=== PATIENT | female | born 1935 | race African-American/Black ===

== ENCOUNTER 2019-11-22 16:15 | Inpatient (IN) | payer MEDICARE, MEDICAID ==
[~2019-11-22] VITALS: Ht 167.6 cm; Wt 65.4 kg
[~2019-11-22 16:15] MED LIST: HYDROCHLOROTHIAZIDE PO; LEVOTHYROXINE PO; POTASSIUM PO
[2019-11-22 18:02] VITALS: BP 169/83
[2019-11-22] MEDS ORDERED: ZOLPIDEM TARTRATE 5MG TABLET PO PRN (18:30)
[2019-11-22] MEDS ORDERED: AMLODIPINE 5MG TABLET PO SCH (18:30)
[2019-11-22] MEDS ORDERED: ACETAMINOPHEN 325MG TABLET PO PRN (18:30)
[2019-11-22 20:00] VITALS: BP 130/59
[2019-11-22 21:33] LABS: BASOPHILS % 0.6 % (0.0-2.0); EOSINOPHILS % 3.6 % (0.0-5.0); HEMATOCRIT. 39.8 % (36.0-48.0); HEMOGLOBIN. 13.6 g/dL (12.0-16.0); MEAN CORPUSCULAR HEMOGLOBIN 35.2 pg (28.0-32.0); MEAN CORPUSCULAR VOLUME 102.7 fL (81.0-99.0); MEAN PLATELET VOLUME 8.8 fl (7.4-10.4); MONOCYTES % 10.5 % (2.0-8.0); NEUTROPHILS % 31.3 % (40.0-76.0); PLATELET 164 x1000/uL (130-400); RED BLOOD CELL COUNT 3.87 mill/uL (4.2-5.4); RED CELL DISTRIBUTION WIDTH 14.5 % (11.6-14.6)
[2019-11-22 21:39] LABS: PARTIAL THROMBOPLASTIN TIME 23.4 sec (23.4-31.0); PROTHROMBIN TIME 10.6 sec (9.6-11.0)
[2019-11-22 21:41] LABS: CHLORIDE 106 mEq/L (98-107)
[2019-11-22 22:33] LABS: CLARITY URINE CLEAR (CLEAR); COLOR URINE YELLOW (YELLOW); KETONES URINE NEGATIVE (NEGATIVE); LEUKOCYTE ESTERASE URINE NEGATIVE (NEGATIVE); NITRITE URINE NEGATIVE (NEGATIVE); OCCULT BLOOD URINE NEGATIVE (NEGATIVE); PROTEIN URINE TRACE (NEGATIVE); UROBILINOGEN URINE 0.2 E.U./dL (0.2-1.0)
[2019-11-23] VITALS (9 sets, daily range): BP systolic 122–177; BP diastolic 56–105
[2019-11-23 07:03] LABS: HEMATOCRIT. 36.7 % (36.0-48.0); HEMOGLOBIN. 12.8 g/dL (12.0-16.0); MEAN CORPUSCULAR HEMOGLOBIN 35.3 pg (28.0-32.0); MEAN CORPUSCULAR VOLUME 101.5 fL (81.0-99.0); MEAN PLATELET VOLUME 8.7 fl (7.4-10.4); PLATELET 144 x1000/uL (130-400); RED BLOOD CELL COUNT 3.62 mill/uL (4.2-5.4)
[2019-11-23] MEDS ORDERED: GENTAMICIN SULF 40MG/ML 2ML VIAL ONE (08:06)
[2019-11-23] MEDS ORDERED: LIDOCAINE HCL 1% 20ML VIAL (Pyxis) INJ ONE (08:07)
[2019-11-23] MEDS ORDERED: GENTAMICIN/NS IRRIGATION 500 ML IR ONE (08:07)
[2019-11-23] MEDS ORDERED: MIDAZOLAM HCL 5 MG/5 ML VIAL ONE (08:35)
[2019-11-23] MEDS ORDERED: PROPOFOL 200MG/20ML VIAL IV ONE (08:36)
[2019-11-23] MEDS ORDERED: ASPIRIN 81MG EC TABLET PO SCH (09:00)
[2019-11-23] MEDS ORDERED: KCL 20MEQ/100ML PREMIX 100 ML IV ONE (09:15)
[2019-11-23] MEDS ORDERED: HYDROCODONE/ACETAMINOPHEN 5/325MG TABLET PO PRN (10:00)
[2019-11-23] MEDS ORDERED: SODIUM CHLORIDE 0.9% 1,000 ML IV ONE (10:10)
[2019-11-23] MEDS ORDERED: ONDANSETRON HCL 4MG/2ML INJ IV PRN (10:15)
[2019-11-23] MEDS ORDERED: MORPHINE SULFATE 2 MG/ML CPJ (NOT FOR IM USE) IV PRN (10:15)
[2019-11-23] MEDS ORDERED: HYDROMORPHONE HCL/PF 2MG/ML CPJ IV PRN (10:15)
[2019-11-23 19:21] LABS: PLATELET ESTIMATE NORMAL
[2019-11-23] MEDS: AMLODIPINE 5MG TABLET PO SCH (21:41)
[2019-11-24] VITALS (9 sets, daily range): BP systolic 142–172; BP diastolic 70–94
[2019-11-24 07:14] LABS: HEMOGLOBIN. 14.4 g/dL (12.0-16.0); MEAN CORPUSCULAR HEMOGLOBIN 35.5 pg (28.0-32.0); MEAN CORPUSCULAR VOLUME 101.5 fL (81.0-99.0); MEAN PLATELET VOLUME 8.6 fl (7.4-10.4); PLATELET 144 x1000/uL (130-400); RED BLOOD CELL COUNT 4.04 mill/uL (4.2-5.4); RED CELL DISTRIBUTION WIDTH 14.6 % (11.6-14.6)
[2019-11-24] MEDS: AMLODIPINE 5MG TABLET PO SCH (08:27)
[2019-11-24] MEDS ORDERED: POTASSIUM CHLORIDE 20MEQ TABLET SR PO NR (10:00)
[2019-11-25 13:41] LABS: PLATELET ESTIMATE NORMAL
== END 2019-11-24 15:50 | disposition home or self-care (01) | DRG 242 ==
LOC: 6WST 16:15 → 3WST 11-23 11:47
PROVIDERS: ADMIT Specialist; ATTEND Internal Medicine Clinical Cardiac Electrophysiology
PROC: 0JH606Z Insertion of Pacemaker, Dual Chamber into Chest Subcutaneous Tissue and Fascia, Open Approach (ICD-10-PCS; principal; 2019-11-23)
PROC: 02HK3JZ Insertion of Pacemaker Lead into Right Ventricle, Percutaneous Approach (ICD-10-PCS; 2019-11-23)
PROC: 02H63JZ Insertion of Pacemaker Lead into Right Atrium, Percutaneous Approach (ICD-10-PCS; 2019-11-23)
PROC: B517YZZ Fluoroscopy of Left Subclavian Vein using Other Contrast (ICD-10-PCS; 2019-11-23)
DX: I49.5 Sick sinus syndrome (principal); N17.0 Acute kidney failure with tubular necrosis; E03.9 Hypothyroidism, unspecified; E78.5 Hyperlipidemia, unspecified; I12.9 Hypertensive chronic kidney disease with stage 1 through stage 4 chronic kidney disease, or unspecified chronic kidney disease; I25.10 Atherosclerotic heart disease of native coronary artery without angina pectoris; I48.91 Unspecified atrial fibrillation; I71.2 Thoracic aortic aneurysm, without rupture; F10.20 Alcohol dependence, uncomplicated; K21.9 Gastro-esophageal reflux disease without esophagitis; N18.9 Chronic kidney disease, unspecified; I25.2 Old myocardial infarction; Z80.0 Family history of malignant neoplasm of digestive organs; Z79.82 Long term (current) use of aspirin; Z79.899 Other long term (current) drug therapy
CPT/HCPCS: 33208; 36415; 71045; 75820; 80048; 80053; 81003; 83735; 84443; 85025; 93005; A4565; C1785; C1893; C1898; J1580; J2250; J2704; J3480; J3490

== ENCOUNTER 2022-08-26 22:17 | Inpatient (IN) | payer MEDICARE, MEDICAID ==
[~2022-08-26] VITALS: Ht 157.5 cm; Wt 48.5 kg
[2022-08-26 22:05] VITALS: BP 134/80
[2022-08-26] MEDS ORDERED: ACETAMINOPHEN 650MG SUPP PR PRN (23:15)
[2022-08-26] MEDS ORDERED: IPRATROPIUM/ALBUTEROL 0.5-3(2.5)MG/3ML NEB HHN PRN (23:15)
[2022-08-26] MEDS ORDERED: DIPHENHYDRAMINE 50MG/ML VIAL IV PRN (23:15)
[2022-08-26] MEDS ORDERED: ONDANSETRON HCL 4MG/2ML INJ IV PRN (23:15)
[2022-08-26] MEDS ORDERED: CLONIDINE 0.1MG TABLET PO PRN (23:15)
[2022-08-27] MEDS: LEVOTHYROXINE SODIUM 25MCG TABLET PO SCH (06:52)
[2022-08-27 06:53] LABS: HEMATOCRIT. 30.3 % (36.0-48.0); HEMOGLOBIN. 10.7 g/dL (12.0-16.0); MEAN CORPUSCULAR HEMOGLOBIN 35.6 pg (28.0-32.0); MEAN CORPUSCULAR VOLUME 100.7 fL (81.0-99.0); MEAN PLATELET VOLUME 8.7 fl (7.4-10.4); PLATELET 182 x1000/uL (130-400); RED BLOOD CELL COUNT 3.01 mill/uL (4.2-5.4); RED CELL DISTRIBUTION WIDTH 13.6 % (11.6-14.6)
[2022-08-27 07:00] LABS: CHLORIDE 107 mEq/L (98-107)
[2022-08-27 08:00] VITALS: BP 141/79
[2022-08-27] MEDS: METOPROLOL TARTRATE 25MG TABLET PO SCH ×2 (09:27→21:41)
[2022-08-27] MEDS: ASPIRIN 81MG EC TABLET PO SCH (09:28)
[2022-08-27] MEDS: AMLODIPINE 10MG TABLET PO SCH (09:28)
[2022-08-27 12:09] LABS: PLATELET ESTIMATE NORMAL
[2022-08-27 20:00] VITALS: BP 151/74
[2022-08-28] MEDS: LEVOTHYROXINE SODIUM 25MCG TABLET PO SCH (06:46)
[2022-08-28 08:03] LABS: BASOPHILS % 0.6 % (0.0-2.0); EOSINOPHILS % 3.4 % (0.0-5.0); HEMATOCRIT. 33.9 % (36.0-48.0); HEMOGLOBIN. 11.9 g/dL (12.0-16.0); LYMPHOCYTES % 34.5 % (20.0-50.0); MEAN CORPUSCULAR HEMOGLOBIN 35.3 pg (28.0-32.0); MEAN PLATELET VOLUME 8.5 fl (7.4-10.4); MONOCYTES % 14.4 % (2.0-8.0); NEUTROPHILS % 47.1 % (40.0-76.0); PLATELET 199 x1000/uL (130-400); RED BLOOD CELL COUNT 3.36 mill/uL (4.2-5.4); RED CELL DISTRIBUTION WIDTH 13.6 % (11.6-14.6)
[2022-08-28] MEDS: AMLODIPINE 10MG TABLET PO SCH (10:02)
[2022-08-28] MEDS: METOPROLOL TARTRATE 25MG TABLET PO SCH ×2 (10:02→21:21)
[2022-08-28] MEDS: ASPIRIN 81MG EC TABLET PO SCH (10:02)
[2022-08-28 20:00] VITALS: BP 125/69
[2022-08-29] MEDS ORDERED: NA PHOS,M-B/NA PHOS,DI-BA ENEMA 118ML PR PRN (04:15)
[2022-08-29] MEDS: LEVOTHYROXINE SODIUM 25MCG TABLET PO SCH (06:07)
[2022-08-29] MEDS: LACTULOSE 20G/30ML UDC PO SCH ×3 (06:07→13:15)
[2022-08-29] MEDS ORDERED: BISACODYL 10MG SUPP PR NR (10:00)
[2022-08-29] MEDS: METOPROLOL TARTRATE 25MG TABLET PO SCH ×2 (11:55→21:16)
[2022-08-29] MEDS: ASPIRIN 81MG EC TABLET PO SCH (11:55)
[2022-08-29] MEDS: AMLODIPINE 10MG TABLET PO SCH (11:55)
[2022-08-29 16:27] LABS: BASOPHILS % 0.3 % (0.0-2.0); EOSINOPHILS % 1.9 % (0.0-5.0); HEMATOCRIT. 34.1 % (36.0-48.0); HEMOGLOBIN. 11.9 g/dL (12.0-16.0); LYMPHOCYTES % 26.9 % (20.0-50.0); MEAN CORPUSCULAR HEMOGLOBIN 35.6 pg (28.0-32.0); MEAN CORPUSCULAR VOLUME 102.1 fL (81.0-99.0); MEAN PLATELET VOLUME 8.5 fl (7.4-10.4); MONOCYTES % 9.5 % (2.0-8.0); NEUTROPHILS % 61.4 % (40.0-76.0); PLATELET 203 x1000/uL (130-400); RED BLOOD CELL COUNT 3.34 mill/uL (4.2-5.4); RED CELL DISTRIBUTION WIDTH 13.6 % (11.6-14.6)
[2022-08-29 16:53] LABS: PHOSPHORUS 2.3 mg/dL (2.5-4.9)
[2022-08-30] MEDS: LEVOTHYROXINE SODIUM 25MCG TABLET PO SCH (06:43)
[2022-08-30 07:01] LABS: BASOPHILS % 0.7 % (0.0-2.0); HEMATOCRIT. 33.6 % (36.0-48.0); HEMOGLOBIN. 11.8 g/dL (12.0-16.0); LYMPHOCYTES % 37.1 % (20.0-50.0); MEAN CORPUSCULAR HEMOGLOBIN 35.3 pg (28.0-32.0); MEAN CORPUSCULAR VOLUME 100.9 fL (81.0-99.0); MEAN PLATELET VOLUME 8.5 fl (7.4-10.4); MONOCYTES % 10.2 % (2.0-8.0); PLATELET 203 x1000/uL (130-400); RED BLOOD CELL COUNT 3.33 mill/uL (4.2-5.4); RED CELL DISTRIBUTION WIDTH 13.7 % (11.6-14.6)
[2022-08-30] MEDS ORDERED: BISACODYL 10MG SUPP PR PRN (09:00)
[2022-08-30] MEDS: ASPIRIN 81MG EC TABLET PO SCH (10:46)
[2022-08-30] MEDS: METOPROLOL TARTRATE 25MG TABLET PO SCH ×2 (10:46→20:40)
[2022-08-30] MEDS: AMLODIPINE 10MG TABLET PO SCH (10:46)
[2022-08-30 19:51] VITALS: BP 126/88
[2022-08-31] MEDS: LEVOTHYROXINE SODIUM 25MCG TABLET PO SCH (06:15)
[2022-08-31 08:00] VITALS: BP 121/72
[2022-08-31] MEDS: ASPIRIN 81MG EC TABLET PO SCH (09:19)
[2022-08-31] MEDS: METOPROLOL TARTRATE 25MG TABLET PO SCH ×2 (09:22→23:27)
[2022-08-31] MEDS: AMLODIPINE 10MG TABLET PO SCH (09:23)
[2022-08-31 20:00] VITALS: BP 140/69
[2022-09-01] MEDS: LEVOTHYROXINE SODIUM 25MCG TABLET PO SCH (06:23)
[2022-09-01 08:00] VITALS: BP 145/65
[2022-09-01] MEDS: ASPIRIN 81MG EC TABLET PO SCH (08:24)
[2022-09-01] MEDS: METOPROLOL TARTRATE 25MG TABLET PO SCH ×2 (08:24→20:43)
[2022-09-01] MEDS: AMLODIPINE 10MG TABLET PO SCH (08:25)
[2022-09-01 20:00] VITALS: BP 133/65
[2022-09-01] MEDS: ATORVASTATIN CALCIUM 40MG TABLET PO SCH (20:43)
[2022-09-02] MEDS: LEVOTHYROXINE SODIUM 25MCG TABLET PO SCH (06:01)
[2022-09-02 06:03] LABS: BASOPHILS % 0.7 % (0.0-2.0); EOSINOPHILS % 3.1 % (0.0-5.0); HEMATOCRIT. 30.7 % (36.0-48.0); LYMPHOCYTES % 38.2 % (20.0-50.0); MEAN CORPUSCULAR VOLUME 100.7 fL (81.0-99.0); MEAN PLATELET VOLUME 8.6 fl (7.4-10.4); MONOCYTES % 12.2 % (2.0-8.0); NEUTROPHILS % 45.8 % (40.0-76.0); PLATELET 211 x1000/uL (130-400); RED BLOOD CELL COUNT 3.05 mill/uL (4.2-5.4); RED CELL DISTRIBUTION WIDTH 13.7 % (11.6-14.6)
[2022-09-02 08:00] VITALS: BP 133/75
[2022-09-02] MEDS: AMLODIPINE 10MG TABLET PO SCH (08:59)
[2022-09-02] MEDS: METOPROLOL TARTRATE 25MG TABLET PO SCH ×2 (08:59→20:37)
[2022-09-02] MEDS: ASPIRIN 81MG EC TABLET PO SCH (08:59)
[2022-09-02] MEDS: ATORVASTATIN CALCIUM 40MG TABLET PO SCH (20:37)
[2022-09-03] MEDS: LEVOTHYROXINE SODIUM 25MCG TABLET PO SCH (07:12)
[2022-09-03 08:00] VITALS: BP 117/58
[2022-09-03] MEDS: ASPIRIN 81MG EC TABLET PO SCH (09:10)
[2022-09-03] MEDS: AMLODIPINE 10MG TABLET PO SCH (09:14)
[2022-09-03] MEDS: METOPROLOL TARTRATE 25MG TABLET PO SCH ×2 (09:14→21:13)
[2022-09-03] MEDS ORDERED: NALOXONE HCL 0.4MG/ML VIAL IV PRN (16:00)
[2022-09-03] MEDS: HYDROCODONE/ACETAMINOPHEN 5/325MG TABLET PO PRN (16:10)
[2022-09-03 20:00] VITALS: BP 133/73
[2022-09-03] MEDS: ATORVASTATIN CALCIUM 40MG TABLET PO SCH (21:14)
[2022-09-04] MEDS: LEVOTHYROXINE SODIUM 25MCG TABLET PO SCH (06:23)
[2022-09-04 06:51] LABS: HEMATOCRIT. 33.6 % (36.0-48.0); HEMOGLOBIN. 11.4 g/dL (12.0-16.0); MEAN CORPUSCULAR HEMOGLOBIN 35.2 pg (28.0-32.0); MEAN CORPUSCULAR VOLUME 103.4 fL (81.0-99.0); MEAN PLATELET VOLUME 8.8 fl (7.4-10.4); PLATELET 182 x1000/uL (130-400); RED BLOOD CELL COUNT 3.25 mill/uL (4.2-5.4); RED CELL DISTRIBUTION WIDTH 14.1 % (11.6-14.6)
[2022-09-04 08:00] VITALS: BP 142/66
[2022-09-04 08:43] LABS: PLATELET ESTIMATE NORMAL
[2022-09-04] MEDS: METOPROLOL TARTRATE 25MG TABLET PO SCH ×2 (09:10→20:17)
[2022-09-04] MEDS: ASPIRIN 81MG EC TABLET PO SCH (09:10)
[2022-09-04] MEDS: AMLODIPINE 10MG TABLET PO SCH (09:10)
[2022-09-04 13:11] LABS: 25-HYDROXY VITAMIN D3 30 ng/mL (.)
[2022-09-04] MEDS: HYDROCODONE/ACETAMINOPHEN 5/325MG TABLET PO PRN (17:54)
[2022-09-04 20:00] VITALS: BP 123/64
[2022-09-04] MEDS: ATORVASTATIN CALCIUM 40MG TABLET PO SCH (20:17)
[2022-09-05] MEDS: LEVOTHYROXINE SODIUM 25MCG TABLET PO SCH (06:04)
[2022-09-05 08:00] VITALS: BP 140/70
[2022-09-05] MEDS: ASPIRIN 81MG EC TABLET PO SCH (09:12)
[2022-09-05] MEDS: METOPROLOL TARTRATE 25MG TABLET PO SCH ×2 (09:12→20:37)
[2022-09-05] MEDS: AMLODIPINE 10MG TABLET PO SCH (09:12)
[2022-09-05 20:00] VITALS: BP 118/67
[2022-09-05] MEDS: ATORVASTATIN CALCIUM 40MG TABLET PO SCH (20:37)
[2022-09-06] MEDS: LEVOTHYROXINE SODIUM 25MCG TABLET PO SCH (06:05)
[2022-09-06 08:00] VITALS: BP 134/69
[2022-09-06] MEDS: ASPIRIN 81MG EC TABLET PO SCH (08:13)
[2022-09-06] MEDS: METOPROLOL TARTRATE 25MG TABLET PO SCH ×2 (08:13→21:30)
[2022-09-06] MEDS: AMLODIPINE 10MG TABLET PO SCH (08:14)
[2022-09-06] MEDS: HYDROCODONE/ACETAMINOPHEN 5/325MG TABLET PO PRN ×2 (17:30→21:30)
[2022-09-06 20:11] VITALS: BP 121/74
[2022-09-06] MEDS: ATORVASTATIN CALCIUM 40MG TABLET PO SCH (21:29)
[2022-09-07] MEDS: LEVOTHYROXINE SODIUM 25MCG TABLET PO SCH (06:31)
[2022-09-07 08:00] VITALS: BP 106/35
[2022-09-07] MEDS: ASPIRIN 81MG EC TABLET PO SCH (08:47)
[2022-09-07] MEDS: METOPROLOL TARTRATE 25MG TABLET PO SCH (08:50)
[2022-09-07] MEDS: AMLODIPINE 10MG TABLET PO SCH (08:51)
[2022-09-07] MEDS ORDERED: AMLO10TA80 PO ×2 (09:57)
[2022-09-07] MEDS ORDERED: ASPI-1406 PO (09:57)
[2022-09-07] MEDS ORDERED: METO25TA6 PO ×2 (09:57)
[2022-09-07] MEDS ORDERED: LEVO25TA7 PO (09:57)
[2022-09-07] MEDS ORDERED: LIP40 PO (09:57)
[2022-09-07 10:14] VITALS: BP 106/35
[2022-09-07] MEDS ORDERED: METO25TA6 MT (12:02)
[2022-09-07] MEDS ORDERED: AMLO2.5T45 MT (12:02)
[2022-09-07] MEDS ORDERED: METOPROLOL TARTRATE 25MG TABLET PO SCH (21:00)
[2022-09-08] MEDS ORDERED: AMLODIPINE 2.5MG TABLET PO SCH (09:00)
== END 2022-09-07 11:33 | disposition home health service (06) | DRG 65 ==
PROVIDERS: ADMIT Physical Medicine & Rehabilitation Spinal Cord Injury Medicine; ATTEND Internal Medicine
PROC: 4A00X4Z Measurement of Central Nervous Electrical Activity, External Approach (ICD-10-PCS; principal; 2022-09-01)
DX: I63.9 Cerebral infarction, unspecified (principal); F01.53 Vascular dementia, unspecified severity, with mood disturbance; I13.0 Hypertensive heart and chronic kidney disease with heart failure and stage 1 through stage 4 chronic kidney disease, or unspecified chronic kidney disease; N39.0 Urinary tract infection, site not specified; N17.9 Acute kidney failure, unspecified; R13.10 Dysphagia, unspecified; B96.20 Unspecified Escherichia coli [E. coli] as the cause of diseases classified elsewhere; I25.10 Atherosclerotic heart disease of native coronary artery without angina pectoris; N18.2 Chronic kidney disease, stage 2 (mild); I50.9 Heart failure, unspecified; E03.9 Hypothyroidism, unspecified; E78.5 Hyperlipidemia, unspecified; I49.5 Sick sinus syndrome; M47.816 Spondylosis without myelopathy or radiculopathy, lumbar region; M17.12 Unilateral primary osteoarthritis, left knee; R53.81 Other malaise; M48.061 Spinal stenosis, lumbar region without neurogenic claudication; E87.6 Hypokalemia; D53.9 Nutritional anemia, unspecified; N83.8 Other noninflammatory disorders of ovary, fallopian tube and broad ligament; I08.0 Rheumatic disorders of both mitral and aortic valves; E83.52 Hypercalcemia; Z95.0 Presence of cardiac pacemaker; Z86.79 Personal history of other diseases of the circulatory system; Z80.8 Family history of malignant neoplasm of other organs or systems; Z79.82 Long term (current) use of aspirin; Z63.4 Disappearance and death of family member; Z82.49 Family history of ischemic heart disease and other diseases of the circulatory system
CPT/HCPCS: 36415; 80048; 80053; 82306; 82330; 83735; 83970; 84100; 84134; 85025; 92508; 92523; 92610; 93005; 93970; 97110; 97112; 97116; 97150; 97162; 97166; 97530; 97535

== ENCOUNTER 2022-11-18 11:27 | Inpatient (IN) | payer MEDICARE, MEDICAID ==
[~2022-11-18] VITALS: Ht 154.9 cm; Wt 59.4 kg
[~2022-11-18 11:27] MED LIST changes: +AMLO2.5T45 MT; +ASPI-1406 PO; -HYDROCHLOROTHIAZIDE PO; +LEVO25TA7 PO; -LEVOTHYROXINE PO; +LIP40 PO; +METO25TA6 MT; -POTASSIUM PO
[2022-11-18 13:15] LABS: BASOPHILS % 0.3 % (0.0-2.0); EOSINOPHILS % 0.7 % (0.0-5.0); HEMATOCRIT. 30.1 % (36.0-48.0); HEMOGLOBIN. 10.6 g/dL (12.0-16.0); LYMPHOCYTES % 25.3 % (20.0-50.0); MEAN CORPUSCULAR HEMOGLOBIN 35.3 pg (28.0-32.0); MEAN CORPUSCULAR VOLUME 100.1 fL (81.0-99.0); MEAN PLATELET VOLUME 8.3 fl (7.4-10.4); MONOCYTES % 12.9 % (2.0-8.0); NEUTROPHILS % 60.8 % (40.0-76.0); PLATELET 161 x1000/uL (130-400); RED BLOOD CELL COUNT 3.01 mill/uL (4.2-5.4); RED CELL DISTRIBUTION WIDTH 14.6 % (11.6-14.6)
[2022-11-18 13:23] LABS: CHLORIDE 108 mEq/L (98-107)
[2022-11-18] MEDS ORDERED: CEFTRIAXONE 1 G PREMIX 50 ML IV ONE (15:15)
[2022-11-18] MEDS ORDERED: ASPIRIN 81MG TABLET PO ONE (15:15)
[2022-11-18 15:36] LABS: COLOR URINE YELLOW (YELLOW)
[2022-11-18 15:37] LABS: CLARITY URINE CLEAR (CLEAR); KETONES URINE TRACE (NEGATIVE); LEUKOCYTE ESTERASE URINE NEGATIVE (NEGATIVE); NITRITE URINE NEGATIVE (NEGATIVE); OCCULT BLOOD URINE NEGATIVE (NEGATIVE); PH URINE 5.5 (4.5-8.0); PROTEIN URINE NEGATIVE (NEGATIVE); SPECIFIC GRAVITY URINE 1.025 (1.005-1.030); UROBILINOGEN URINE 0.2 E.U./dL (0.2-1.0)
[2022-11-19] VITALS (7 sets, daily range): BP systolic 95–174; BP diastolic 63–79
[2022-11-19] MEDS ORDERED: MAGNESIUM/ALUMINUM HYDROXIDE/SIMETHICONE 30ML UDC PO PRN (01:15)
[2022-11-19] MEDS ORDERED: IPRATROPIUM/ALBUTEROL 0.5-3(2.5)MG/3ML NEB HHN PRN (01:15)
[2022-11-19] MEDS ORDERED: CLONIDINE 0.1MG TABLET PO PRN (01:15)
[2022-11-19] MEDS ORDERED: ONDANSETRON HCL 4MG/2ML INJ IV PRN (01:15)
[2022-11-19] MEDS ORDERED: ACETAMINOPHEN 325MG TABLET PO PRN ×2 (01:15)
[2022-11-19] MEDS: AMLODIPINE 2.5MG TABLET PO SCH ×2 (02:57→09:31)
[2022-11-19 07:44] LABS: FOLIC ACID (FOLATE) SERUM 12.9 ng/mL (>5.38)
[2022-11-19] MEDS ORDERED: IPRATROPIUM BROMIDE (0.02%) 0.5MG/2.5ML NEB HHN PRN (08:00)
[2022-11-19] MEDS ORDERED: ALBUTEROL (0.083%) 2.5MG/3ML NEB HHN PRN (08:00)
[2022-11-19] MEDS: LEVOTHYROXINE SODIUM 25MCG TABLET PO SCH (08:48)
[2022-11-19] MEDS ORDERED: METOPROLOL TARTRATE 25MG TABLET PO SCH (09:00)
[2022-11-19] MEDS ORDERED: POTASSIUM CHLORIDE 20MEQ TABLET SR PO NR (09:00)
[2022-11-19] MEDS ORDERED: FUROSEMIDE 40MG/4ML VIAL IVP SCH (09:00)
[2022-11-19] MEDS: ENOXAPARIN 30MG/0.3ML SYR SUBCUT SCH (09:31)
[2022-11-19] MEDS: ASPIRIN 81MG EC TABLET PO SCH (09:31)
[2022-11-19 10:09] LABS: CREATINE KINASE 601 IU/L (26-192)
[2022-11-19] MEDS ORDERED: DEXT 5%/0.45% NACL 1000ML 1,000 ML IV ONE (11:30)
[2022-11-19] MEDS ORDERED: VALS160T28 PO (16:32)
[2022-11-19] MEDS ORDERED: HYDR25TA PO (16:32)
[2022-11-19] MEDS ORDERED: WELC PO (16:32)
[2022-11-19] MEDS ORDERED: ATORVASTATIN CALCIUM 40MG TABLET PO SCH (21:00)
[2022-11-19] MEDS: FAMOTIDINE 20MG TABLET PO SCH (21:25)
[2022-11-20] VITALS: BP 146/79
[2022-11-20 04:00] VITALS: BP 142/79
[2022-11-20 06:59] LABS: HEMATOCRIT. 31.5 % (36.0-48.0); MEAN CORPUSCULAR HEMOGLOBIN 35.2 pg (28.0-32.0); MEAN CORPUSCULAR VOLUME 100.3 fL (81.0-99.0); PLATELET 158 x1000/uL (130-400); RED BLOOD CELL COUNT 3.14 mill/uL (4.2-5.4); RED CELL DISTRIBUTION WIDTH 14.6 % (11.6-14.6)
[2022-11-20 07:24] LABS: CREATINE KINASE MB FRACTION 2.7 ng/mL (0.5-3.6); PHOSPHORUS 2.3 mg/dL (2.5-4.9); T4 FREE 1.31 ng/dL (0.76-1.46)
[2022-11-20 08:00] VITALS: BP 138/80
[2022-11-20] MEDS: ENOXAPARIN 30MG/0.3ML SYR SUBCUT SCH (08:19)
[2022-11-20] MEDS: AMLODIPINE 2.5MG TABLET PO SCH (08:19)
[2022-11-20] MEDS: LEVOTHYROXINE SODIUM 25MCG TABLET PO SCH (08:19)
[2022-11-20] MEDS: ASPIRIN 81MG EC TABLET PO SCH (08:19)
[2022-11-20] MEDS: DEXT 5%/0.45% NACL 1000ML 1,000 ML IV SCH (11:52)
[2022-11-20 12:00] VITALS: BP 122/72
[2022-11-20] MEDS ORDERED: POTASSIUM PHOS,M-BASIC-D-BASIC 10 MMOL in DEXT 5% WATER 246.6667 ML IV NR (13:00)
[2022-11-20 15:46] LABS: ATYPICAL LYMPHOCYTES 1; PLATELET ESTIMATE NORMAL
[2022-11-20 16:00] VITALS: BP 124/67
[2022-11-20 20:00] VITALS: BP 132/70
[2022-11-20] MEDS: FAMOTIDINE 20MG TABLET PO SCH (20:59)
[2022-11-21] VITALS: BP 135/69
[2022-11-21 04:00] VITALS: BP 145/71
[2022-11-21] MEDS: DEXT 5%/0.45% NACL 1000ML 1,000 ML IV SCH ×3 (04:25→17:06)
[2022-11-21 06:41] LABS: HEMATOCRIT. 30.8 % (36.0-48.0); HEMOGLOBIN. 10.9 g/dL (12.0-16.0); MEAN CORPUSCULAR HEMOGLOBIN 35.3 pg (28.0-32.0); MEAN CORPUSCULAR VOLUME 99.9 fL (81.0-99.0); MEAN PLATELET VOLUME 8.7 fl (7.4-10.4); PLATELET 161 x1000/uL (130-400); RED BLOOD CELL COUNT 3.08 mill/uL (4.2-5.4); RED CELL DISTRIBUTION WIDTH 14.5 % (11.6-14.6)
[2022-11-21 07:00] LABS: PHOSPHORUS 2.3 mg/dL (2.5-4.9)
[2022-11-21 08:00] VITALS: BP 152/80
[2022-11-21] MEDS: ASPIRIN 81MG EC TABLET PO SCH (08:27)
[2022-11-21] MEDS: LEVOTHYROXINE SODIUM 50MCG TABLET PO SCH (08:27)
[2022-11-21] MEDS: ENOXAPARIN 30MG/0.3ML SYR SUBCUT SCH (08:27)
[2022-11-21] MEDS: AMLODIPINE 5MG TABLET PO SCH (08:31)
[2022-11-21 12:00] VITALS: BP 150/76
[2022-11-21] MEDS ORDERED: POTASSIUM CHLORIDE 20MEQ/PACKET PO NR (12:30)
[2022-11-21 16:00] VITALS: BP 132/60
[2022-11-21 20:00] VITALS: BP_SYST 153; BP_SYST 166; BP_DIAS 62; BP_DIAS 68
[2022-11-21] MEDS: FAMOTIDINE 20MG TABLET PO SCH (22:03)
[2022-11-22] VITALS: BP 117/78
[2022-11-22] MEDS: DEXT 5%/0.45% NACL 1000ML 1,000 ML IV SCH ×2 (02:44→14:30)
[2022-11-22 04:00] VITALS: BP 146/74
[2022-11-22 07:34] LABS: CHLORIDE 103 mEq/L (98-107)
[2022-11-22 07:39] LABS: HEMATOCRIT. 29.5 % (36.0-48.0); HEMOGLOBIN. 10.5 g/dL (12.0-16.0); MEAN CORPUSCULAR HEMOGLOBIN 35.5 pg (28.0-32.0); MEAN CORPUSCULAR VOLUME 99.8 fL (81.0-99.0); MEAN PLATELET VOLUME 8.8 fl (7.4-10.4); PLATELET 170 x1000/uL (130-400); RED BLOOD CELL COUNT 2.96 mill/uL (4.2-5.4); RED CELL DISTRIBUTION WIDTH 14.1 % (11.6-14.6)
[2022-11-22 07:50] LABS: CREATINE KINASE 371 IU/L (26-192)
[2022-11-22] MEDS: LEVOTHYROXINE SODIUM 50MCG TABLET PO SCH (07:54)
[2022-11-22 08:00] VITALS: BP 164/83
[2022-11-22] MEDS: AMLODIPINE 5MG TABLET PO SCH (09:25)
[2022-11-22] MEDS: ENOXAPARIN 30MG/0.3ML SYR SUBCUT SCH (09:26)
[2022-11-22] MEDS: ASPIRIN 81MG EC TABLET PO SCH (09:26)
[2022-11-22 12:00] VITALS: BP 130/79
[2022-11-22 13:40] LABS: PLATELET ESTIMATE NORMAL
[2022-11-22 14:54] LABS: PLATELET ESTIMATE NORMAL
[2022-11-22] MEDS ORDERED: AMLO5TAB88 PO (15:31)
[2022-11-22] MEDS ORDERED: LEVO50TA8 PO (15:31)
[2022-11-22 16:00] VITALS: BP 143/88
[2022-11-22 16:43] VITALS: BP 143/88
== END 2022-11-22 18:01 | disposition home health service (06) | DRG 91 ==
LOC: ER 11:27 → 7WST 17:22 → ENRESERV 22:25
PROVIDERS: ADMIT Internal Medicine; ATTEND Internal Medicine
DX: G92.8 Other toxic encephalopathy (principal); I21.A1 Myocardial infarction type 2; M62.82 Rhabdomyolysis; N17.9 Acute kidney failure, unspecified; E86.0 Dehydration; D53.9 Nutritional anemia, unspecified; I10 Essential (primary) hypertension; E83.52 Hypercalcemia; I71.20 Thoracic aortic aneurysm, without rupture, unspecified; E03.9 Hypothyroidism, unspecified; F03.90 Unspecified dementia, unspecified severity, without behavioral disturbance, psychotic disturbance, mood disturbance, and anxiety; E83.39 Other disorders of phosphorus metabolism; Z95.0 Presence of cardiac pacemaker; Z79.82 Long term (current) use of aspirin; Z79.899 Other long term (current) drug therapy
CPT/HCPCS: 36415; 71045; 80048; 80053; 80061; 81003; 82550; 82553; 82607; 82746; 83735; 83880; 84100; 84439; 84443; 84484; 85025; 93005; 93306; 93970; 97162; 97166; 97535; 99285; A6261; J0696; J1650; J1940; J3490; J7060

== ENCOUNTER 2022-12-27 14:08 | Inpatient (IN) | payer MEDICARE, MEDICAID ==
[~2022-12-27] VITALS: Ht 152.4 cm; Wt 46.7 kg
[~2022-12-27 14:08] MED LIST changes: -AMLO2.5T45 MT; +AMLO5TAB88 PO; +HYDR25TA PO; -LEVO25TA7 PO; +LEVO50TA8 PO; -METO25TA6 MT; +VALS160T28 PO; +WELC PO
[2022-12-27] MEDS ORDERED: DEXTROSE 50% WATER 50ML SYRINGE IV ONE (14:30)
[2022-12-27 15:00] LABS: BG BASE EXCESS -3.3 mmol/L (-2.0-2.0); BG CARBOXYHEMOGLOBIN 0.3 % (0.5-1.5); BG DEOXYHEMOGLOBIN 1.8 % (0.0-5.0); BG FRACTION INSPIRED OXYGEN 100; BG HCO3 ACT 20.3 mmol/L (22.0-26.0); BG METHEMOGLOBIN 0.3 % (0.0-1.5); BG OXYGEN SATURATION 98.2 % (92.0-98.5); BG OXYHEMOGLOBIN 97.6 % (94.0-97.0); BG PCO2 31.6 mmHg (35.0-45.0); BG PH 7.425 (7.350-7.450); BG PO2 129.8 mmHg (75.0-100.0); BG SAMPLE SITE LEFT RADIAL; BG TOTAL HEMOGLOBIN 11.8 g/dL (12.0-18.0); BG VENT MODE MASK - NRB
[2022-12-27 15:42] LABS: BASOPHILS % 0.3 % (0.0-2.0); EOSINOPHILS % 0.3 % (0.0-5.0); HEMATOCRIT. 37.1 % (36.0-48.0); HEMOGLOBIN. 12.3 g/dL (12.0-16.0); LYMPHOCYTES % 14.4 % (20.0-50.0); MEAN CORPUSCULAR VOLUME 105.6 fL (81.0-99.0); MEAN PLATELET VOLUME 10.4 fl (7.4-10.4); MONOCYTES % 6.9 % (2.0-8.0); NEUTROPHILS % 78.1 % (40.0-76.0); PLATELET 145 x1000/uL (130-400); RED BLOOD CELL COUNT 3.51 mill/uL (4.2-5.4); RED CELL DISTRIBUTION WIDTH 15.7 % (11.6-14.6)
[2022-12-27 15:52] LABS: CHLORIDE 120 mEq/L (98-107)
[2022-12-27] MEDS ORDERED: SODIUM CHLORIDE 0.9% 1,000 ML IV ONE (17:00)
[2022-12-27] MEDS ORDERED: ENOXAPARIN 40MG/0.4ML SYR SUBCUT NR (17:00)
[2022-12-27] MEDS ORDERED: ENOXAPARIN 40MG/0.4ML SYR SUBCUT ONE (17:00)
[2022-12-27] MEDS ORDERED: NOREPINEPHRINE 8 MG in DEXTROSE 5% WATER 250 ML IV PRN (17:15)
[2022-12-27] MEDS ORDERED: NOREPINEPHRINE 8MG/250ML PMX 250 ML IV ONE (17:15)
[2022-12-27] MEDS ORDERED: VANCOMYCIN 1G PREMIX 200 ML IV SCH (18:00)
[2022-12-27] MEDS ORDERED: CEFTRIAXONE 1 G PREMIX 50 ML IV ONE (18:00)
[2022-12-27] MEDS ORDERED: DOCUSATE SODIUM 100MG CAPSULE PO PRN (23:00)
[2022-12-27] MEDS ORDERED: CLONIDINE 0.1MG TABLET PO PRN (23:00)
[2022-12-27] MEDS ORDERED: HYDROCODONE/ACETAMINOPHEN 5/325MG TABLET PO PRN (23:00)
[2022-12-27] MEDS ORDERED: IPRATROPIUM/ALBUTEROL 0.5-3(2.5)MG/3ML NEB HHN PRN (23:00)
[2022-12-27] MEDS ORDERED: LORAZEPAM 0.5MG TABLET PO PRN (23:00)
[2022-12-27] MEDS ORDERED: ACETAMINOPHEN 325MG TABLET PO PRN (23:00)
[2022-12-27] MEDS ORDERED: ONDANSETRON HCL 4MG/2ML INJ IV PRN (23:00)
[2022-12-27] MEDS ORDERED: ALBUTEROL (0.083%) 2.5MG/3ML NEB HHN PRN (23:15)
[2022-12-27] MEDS ORDERED: IPRATROPIUM BROMIDE (0.02%) 0.5MG/2.5ML NEB HHN PRN (23:15)
[2022-12-28] VITALS (11 sets, daily range): BP systolic 110–143; BP diastolic 59–85
[2022-12-28] MEDS: DEXTROSE 5% WATER 1,000 ML IV SCH ×2 (00:31→23:00)
[2022-12-28 01:01] LABS: CREATINE KINASE 735 IU/L (26-192)
[2022-12-28 07:25] LABS: BASOPHILS % 0.4 % (0.0-2.0); EOSINOPHILS % 1.2 % (0.0-5.0); HEMATOCRIT. 35.5 % (36.0-48.0); HEMOGLOBIN. 11.6 g/dL (12.0-16.0); LYMPHOCYTES % 13.1 % (20.0-50.0); MEAN CORPUSCULAR HEMOGLOBIN 35.2 pg (28.0-32.0); MEAN CORPUSCULAR VOLUME 107.6 fL (81.0-99.0); MEAN PLATELET VOLUME 10.5 fl (7.4-10.4); NEUTROPHILS % 76.3 % (40.0-76.0); PLATELET 133 x1000/uL (130-400); RED CELL DISTRIBUTION WIDTH 15.5 % (11.6-14.6)
[2022-12-28] MEDS: BLOOD SUGAR DIAGNOSTIC STRIP TEST SCH ×4 (07:30→21:22)
[2022-12-28 07:53] LABS: CHLORIDE 122 mEq/L (98-107)
[2022-12-28] MEDS: INSULIN LISPRO 100 UNITS/ML SUBCUT SCH ×4 (08:00→21:00)
[2022-12-28] MEDS ORDERED: NALOXONE HCL 0.4MG/ML VIAL IV PRN (08:30)
[2022-12-28 09:32] LABS: INR 1.2; PROTHROMBIN TIME 12.3 sec (9.6-11.0)
[2022-12-28] MEDS ORDERED: POTASSIUM CHLORIDE 20MEQ TABLET SR PO NR (13:00)
[2022-12-28 13:29] LABS: BG BASE EXCESS -2.5 mmol/L (-2.0-2.0); BG CARBOXYHEMOGLOBIN 0.3 % (0.5-1.5); BG FRACTION INSPIRED OXYGEN 21; BG HCO3 ACT 21.7 mmol/L (22.0-26.0); BG METHEMOGLOBIN 0.3 % (0.0-1.5); BG OXYHEMOGLOBIN 95.4 % (94.0-97.0); BG PCO2 35.4 mmHg (35.0-45.0); BG PH 7.405 (7.350-7.450); BG PO2 81.6 mmHg (75.0-100.0); BG SAMPLE SITE LEFT RADIAL; BG TOTAL HEMOGLOBIN 11.1 g/dL (12.0-18.0); BG VENT MODE ROOM AIR
[2022-12-28] MEDS: ASPIRIN 81MG TABLET PO SCH (14:06)
[2022-12-28] MEDS: ENOXAPARIN 40MG/0.4ML SYR SUBCUT SCH (17:55)
[2022-12-28] MEDS ORDERED: ALBUTEROL (0.083%) 2.5MG/3ML NEB HHN SCH (18:00)
[2022-12-28] MEDS ORDERED: IPRATROPIUM BROMIDE (0.02%) 0.5MG/2.5ML NEB HHN SCH (18:00)
[2022-12-28] MEDS ORDERED: IPRATROPIUM/ALBUTEROL 0.5-3(2.5)MG/3ML NEB HHN SCH (18:00)
[2022-12-28 21:24] LABS: CLARITY URINE CLOUDY (CLEAR); COLOR URINE YELLOW (YELLOW); KETONES URINE NEGATIVE (NEGATIVE); LEUKOCYTE ESTERASE URINE 1+ (NEGATIVE); NITRITE URINE NEGATIVE (NEGATIVE); OCCULT BLOOD URINE NEGATIVE (NEGATIVE); PROTEIN URINE TRACE (NEGATIVE); SPECIFIC GRAVITY URINE 1.018 (1.005-1.030); UROBILINOGEN URINE 0.2 E.U./dL (0.2-1.0)
[2022-12-28] MEDS: ATORVASTATIN CALCIUM 20MG TABLET PO SCH (21:43)
[2022-12-29] VITALS (13 sets, daily range): BP systolic 92–143; BP diastolic 42–86
[2022-12-29 06:23] LABS: HEMATOCRIT. 36.3 % (36.0-48.0); HEMOGLOBIN. 10.8 g/dL (12.0-16.0); MEAN CORPUSCULAR HEMOGLOBIN 34.7 pg (28.0-32.0); MEAN CORPUSCULAR VOLUME 116.4 fL (81.0-99.0); MEAN PLATELET VOLUME 10.9 fl (7.4-10.4); PLATELET 118 x1000/uL (130-400); RED BLOOD CELL COUNT 3.12 mill/uL (4.2-5.4)
[2022-12-29] MEDS: BLOOD SUGAR DIAGNOSTIC STRIP TEST SCH ×4 (07:49→20:18)
[2022-12-29] MEDS: INSULIN LISPRO 100 UNITS/ML SUBCUT SCH ×4 (07:50→20:18)
[2022-12-29 08:18] LABS: BG BASE EXCESS -3.6 mmol/L (-2.0-2.0); BG CARBOXYHEMOGLOBIN 0.2 % (0.5-1.5); BG FRACTION INSPIRED OXYGEN 36; BG HCO3 ACT 20.4 mmol/L (22.0-26.0); BG METHEMOGLOBIN 0.4 % (0.0-1.5); BG OXYHEMOGLOBIN 96.4 % (94.0-97.0); BG PCO2 33.5 mmHg (35.0-45.0); BG PH 7.403 (7.350-7.450); BG PO2 102.6 mmHg (75.0-100.0); BG SAMPLE SITE RIGHT RADIAL; BG VENT MODE NASAL CANNULA
[2022-12-29] MEDS: ASPIRIN 81MG TABLET PO SCH (08:49)
[2022-12-29] MEDS: LEVOTHYROXINE SODIUM 50MCG TABLET PO SCH (08:49)
[2022-12-29 13:07] LABS: PLATELET ESTIMATE MARKEDLY DECREASED
[2022-12-29] MEDS: ENOXAPARIN 40MG/0.4ML SYR SUBCUT SCH (17:52)
[2022-12-29] MEDS: ATORVASTATIN CALCIUM 20MG TABLET PO SCH (20:25)
[2022-12-30] VITALS (12 sets, daily range): BP systolic 83–133; BP diastolic 45–86
[2022-12-30] MEDS: DEXTROSE 5% WATER 1,000 ML IV SCH ×3 (00:04→20:27)
[2022-12-30] MEDS: BLOOD SUGAR DIAGNOSTIC STRIP TEST SCH ×4 (07:00→20:28)
[2022-12-30] MEDS: INSULIN LISPRO 100 UNITS/ML SUBCUT SCH ×4 (08:00→20:28)
[2022-12-30] MEDS: LEVOTHYROXINE SODIUM 50MCG TABLET PO SCH (09:50)
[2022-12-30] MEDS: ASPIRIN 81MG TABLET PO SCH (09:51)
[2022-12-30 11:03] LABS: BASOPHILS % 0.2 % (0.0-2.0); EOSINOPHILS % 2.1 % (0.0-5.0); HEMATOCRIT. 28.6 % (36.0-48.0); HEMOGLOBIN. 10.1 g/dL (12.0-16.0); LYMPHOCYTES % 22.9 % (20.0-50.0); MEAN CORPUSCULAR HEMOGLOBIN 36.1 pg (28.0-32.0); MEAN PLATELET VOLUME 10.2 fl (7.4-10.4); MONOCYTES % 9.2 % (2.0-8.0); NEUTROPHILS % 65.6 % (40.0-76.0); PLATELET 125 x1000/uL (130-400); RED CELL DISTRIBUTION WIDTH 14.5 % (11.6-14.6)
[2022-12-30 11:09] LABS: MEAN CORPUSCULAR VOLUME 102.2 fL (81.0-99.0)
[2022-12-30 13:10] LABS: A/G RATIO 0.7 (0.7-1.7); ALBUMIN 3.1 g/dL (2.9-4.4); ALPHA-1-GLOBULIN 0.2 g/dL (0.0-0.4); GAMMA GLOBULINS 2.2 g/dL (0.4-1.8); GLOBULIN TOTAL 4.4 g/dL (2.2-3.9); M-SPIKE 0.9 g/dL (Not Observed); TOTAL PROTEIN SERUM 7.5 g/dL (6.0-8.5)
[2022-12-30] MEDS: ENOXAPARIN 40MG/0.4ML SYR SUBCUT SCH (16:39)
[2022-12-30] MEDS: ATORVASTATIN CALCIUM 20MG TABLET PO SCH (20:25)
[2022-12-31] VITALS: BP 150/84
[2022-12-31 04:00] VITALS: BP 138/62
[2022-12-31] MEDS: DEXTROSE 5% WATER 1,000 ML IV SCH (04:39)
[2022-12-31] MEDS: BLOOD SUGAR DIAGNOSTIC STRIP TEST SCH ×4 (07:53→20:50)
[2022-12-31] MEDS: INSULIN LISPRO 100 UNITS/ML SUBCUT SCH ×4 (07:54→20:51)
[2022-12-31] MEDS: LEVOTHYROXINE SODIUM 50MCG TABLET PO SCH (07:58)
[2022-12-31 08:00] VITALS: BP 122/65
[2022-12-31] MEDS: ASPIRIN 81MG TABLET PO SCH (08:02)
[2022-12-31 09:42] LABS: BASOPHILS % 0.2 % (0.0-2.0); EOSINOPHILS % 2.5 % (0.0-5.0); HEMATOCRIT. 31.9 % (36.0-48.0); LYMPHOCYTES % 21.6 % (20.0-50.0); MEAN CORPUSCULAR HEMOGLOBIN 34.9 pg (28.0-32.0); MEAN CORPUSCULAR VOLUME 101.5 fL (81.0-99.0); MEAN PLATELET VOLUME 10.7 fl (7.4-10.4); MONOCYTES % 10.6 % (2.0-8.0); NEUTROPHILS % 65.1 % (40.0-76.0); PLATELET 135 x1000/uL (130-400); RED BLOOD CELL COUNT 3.14 mill/uL (4.2-5.4); RED CELL DISTRIBUTION WIDTH 14.4 % (11.6-14.6)
[2022-12-31 12:00] VITALS: BP 94/49
[2022-12-31 16:00] VITALS: BP 127/72
[2022-12-31] MEDS: ENOXAPARIN 40MG/0.4ML SYR SUBCUT SCH (16:21)
[2022-12-31 20:00] VITALS: BP 97/62
[2022-12-31] MEDS: ATORVASTATIN CALCIUM 20MG TABLET PO SCH (20:43)
[2023-01-01] VITALS (49 sets, daily range): BP systolic 65–136; BP diastolic 21–74
[2023-01-01 07:33] LABS: BASOPHILS % 0.1 % (0.0-2.0); EOSINOPHILS % 0.5 % (0.0-5.0); HEMOGLOBIN. 11.2 g/dL (12.0-16.0); LYMPHOCYTES % 16.3 % (20.0-50.0); MEAN CORPUSCULAR HEMOGLOBIN 35.8 pg (28.0-32.0); MEAN CORPUSCULAR VOLUME 101.8 fL (81.0-99.0); MEAN PLATELET VOLUME 10.6 fl (7.4-10.4); MONOCYTES % 8.6 % (2.0-8.0); NEUTROPHILS % 74.5 % (40.0-76.0); PLATELET 139 x1000/uL (130-400); RED BLOOD CELL COUNT 3.14 mill/uL (4.2-5.4); RED CELL DISTRIBUTION WIDTH 14.4 % (11.6-14.6)
[2023-01-01] MEDS: DEXT 5%/0.45% NACL 1000ML 1,000 ML IV SCH ×2 (08:00→21:26)
[2023-01-01] MEDS: INSULIN LISPRO 100 UNITS/ML SUBCUT SCH ×4 (08:00→21:00)
[2023-01-01] MEDS: BLOOD SUGAR DIAGNOSTIC STRIP TEST SCH ×4 (08:01→21:18)
[2023-01-01] MEDS: ASPIRIN 81MG TABLET PO SCH (08:16)
[2023-01-01] MEDS: LEVOTHYROXINE SODIUM 50MCG TABLET PO SCH (08:16)
[2023-01-01] MEDS: MIDODRINE HCL 5MG TABLET PO SCH ×3 (10:59→17:48)
[2023-01-01] MEDS ORDERED: NOREPINEPHRINE 8 MG in DEXT 5% WATER 242 ML IV PRN (11:30)
[2023-01-01] MEDS: DEXTROSE 50% WATER 50ML SYRINGE IV PRN ×2 (12:12→17:49)
[2023-01-01 12:27] LABS: BG CARBOXYHEMOGLOBIN 0.3 % (0.5-1.5); BG DEOXYHEMOGLOBIN 4.2 % (0.0-5.0); BG FRACTION INSPIRED OXYGEN 28; BG HCO3 ACT 18.3 mmol/L (22.0-26.0); BG METHEMOGLOBIN 0.6 % (0.0-1.5); BG OXYGEN SATURATION 95.8 % (92.0-98.5); BG OXYHEMOGLOBIN 94.9 % (94.0-97.0); BG PCO2 28.4 mmHg (35.0-45.0); BG PH 7.426 (7.350-7.450); BG PO2 80.5 mmHg (75.0-100.0); BG SAMPLE SITE RIGHT RADIAL; BG TOTAL HEMOGLOBIN 10.8 g/dL (12.0-18.0); BG VENT MODE NASAL CANNULA
[2023-01-01] MEDS: ENOXAPARIN 60MG/0.6ML SYR SUBCUT SCH (17:49)
[2023-01-01 17:54] LABS: CLARITY URINE CLEAR (CLEAR); COLOR URINE YELLOW (YELLOW); KETONES URINE NEGATIVE (NEGATIVE); LEUKOCYTE ESTERASE URINE TRACE (NEGATIVE); NITRITE URINE NEGATIVE (NEGATIVE); OCCULT BLOOD URINE TRACE (NEGATIVE); PH URINE 5.5 (4.5-8.0); PROTEIN URINE NEGATIVE (NEGATIVE); SPECIFIC GRAVITY URINE 1.008 (1.005-1.030); UROBILINOGEN URINE 0.2 E.U./dL (0.2-1.0)
[2023-01-01] MEDS: ATORVASTATIN CALCIUM 20MG TABLET PO SCH (21:26)
[2023-01-02] VITALS (48 sets, daily range): BP systolic 81–150; BP diastolic 39–95
[2023-01-02] MEDS: DEXTROSE 50% WATER 50ML SYRINGE IV PRN ×3 (02:37→20:11)
[2023-01-02] MEDS: BLOOD SUGAR DIAGNOSTIC STRIP TEST SCH ×6 (07:51→22:09)
[2023-01-02] MEDS: INSULIN LISPRO 100 UNITS/ML SUBCUT SCH (07:51)
[2023-01-02] MEDS: LEVOTHYROXINE SODIUM 50MCG TABLET PO SCH (08:25)
[2023-01-02] MEDS: ASPIRIN 81MG TABLET PO SCH (08:25)
[2023-01-02] MEDS: MIDODRINE HCL 5MG TABLET PO SCH ×3 (08:25→21:08)
[2023-01-02] MEDS ORDERED: DEXT 10% WATER 1,000 ML IV SCH (09:15)
[2023-01-02] MEDS: DEXT 10% WATER 1,000 ML IV SCH (10:15)
[2023-01-02] MEDS ORDERED: ALBUMIN HUMAN 25GM/500ML (5%) IV PRN (11:15)
[2023-01-02 11:32] LABS: BASOPHILS % 0.1 % (0.0-2.0); EOSINOPHILS % 1.6 % (0.0-5.0); HEMATOCRIT. 28.9 % (36.0-48.0); HEMOGLOBIN. 9.8 g/dL (12.0-16.0); LYMPHOCYTES % 10.9 % (20.0-50.0); MEAN CORPUSCULAR HEMOGLOBIN 34.9 pg (28.0-32.0); MEAN CORPUSCULAR VOLUME 102.4 fL (81.0-99.0); MEAN PLATELET VOLUME 10.4 fl (7.4-10.4); MONOCYTES % 9.3 % (2.0-8.0); NEUTROPHILS % 78.1 % (40.0-76.0); PLATELET 133 x1000/uL (130-400); RED BLOOD CELL COUNT 2.82 mill/uL (4.2-5.4); RED CELL DISTRIBUTION WIDTH 14.8 % (11.6-14.6)
[2023-01-02] MEDS: ENOXAPARIN 60MG/0.6ML SYR SUBCUT SCH (17:53)
[2023-01-02] MEDS: ATORVASTATIN CALCIUM 20MG TABLET PO SCH (21:08)
[2023-01-02] MEDS ORDERED: DEXTROSE 50% WATER 50ML SYRINGE IV PRN (21:30)
[2023-01-03] VITALS (46 sets, daily range): BP systolic 92–146; BP diastolic 50–89
[2023-01-03] MEDS: BLOOD SUGAR DIAGNOSTIC STRIP TEST SCH ×10 (00:59→18:45)
[2023-01-03] MEDS ORDERED: CEFAZOLIN 1000MG PREMIX 50 ML IV SCH (04:00)
[2023-01-03 05:29] LABS: BASOPHILS % 0.2 % (0.0-2.0); EOSINOPHILS % 2.4 % (0.0-5.0); HEMATOCRIT. 28.5 % (36.0-48.0); HEMOGLOBIN. 9.9 g/dL (12.0-16.0); LYMPHOCYTES % 14.5 % (20.0-50.0); MEAN CORPUSCULAR HEMOGLOBIN 35.3 pg (28.0-32.0); MEAN CORPUSCULAR VOLUME 101.9 fL (81.0-99.0); MEAN PLATELET VOLUME 10.9 fl (7.4-10.4); MONOCYTES % 10.2 % (2.0-8.0); NEUTROPHILS % 72.7 % (40.0-76.0); PLATELET 150 x1000/uL (130-400); RED CELL DISTRIBUTION WIDTH 14.5 % (11.6-14.6)
[2023-01-03 05:38] LABS: INR 1.1; PROTHROMBIN TIME 11.9 sec (9.6-11.0)
[2023-01-03] MEDS: MIDODRINE HCL 5MG TABLET PO SCH ×3 (05:41→21:00)
[2023-01-03 05:47] LABS: CHLORIDE 105 mEq/L (98-107)
[2023-01-03] MEDS ORDERED: POTASSIUM CHLORIDE 20MEQ/PACKET PO SCH (07:30)
[2023-01-03] MEDS: LEVOTHYROXINE SODIUM 50MCG TABLET PO SCH ×2 (07:50→08:29)
[2023-01-03] MEDS: ASPIRIN 81MG TABLET PO SCH ×2 (08:29→09:00)
[2023-01-03] MEDS: CITRIC ACID/SODIUM CITRATE SOLN 30ML UDC PO SCH ×4 (08:29→18:45)
[2023-01-03] MEDS: DEXT 10% WATER 1,000 ML IV SCH (08:29)
[2023-01-03] MEDS ORDERED: PROPOFOL 200MG/20ML VIAL IV ONE (17:05)
[2023-01-03] MEDS: ENOXAPARIN 60MG/0.6ML SYR SUBCUT SCH (18:45)
[2023-01-03] MEDS ORDERED: BLOOD SUGAR DIAGNOSTIC STRIP TEST SCH (22:00)
[2023-01-03] MEDS: ATORVASTATIN CALCIUM 20MG TABLET PO SCH (22:28)
[2023-01-04] VITALS (44 sets, daily range): BP systolic 101–139; BP diastolic 47–87
[2023-01-04] MEDS: BLOOD SUGAR DIAGNOSTIC STRIP TEST SCH ×10 (02:00→17:42)
[2023-01-04 05:27] LABS: HEMATOCRIT. 25.8 % (36.0-48.0); MEAN CORPUSCULAR HEMOGLOBIN 35.1 pg (28.0-32.0); MEAN CORPUSCULAR VOLUME 100.5 fL (81.0-99.0); MEAN PLATELET VOLUME 9.9 fl (7.4-10.4); PLATELET 171 x1000/uL (130-400); RED BLOOD CELL COUNT 2.56 mill/uL (4.2-5.4); RED CELL DISTRIBUTION WIDTH 14.6 % (11.6-14.6)
[2023-01-04 05:43] LABS: PHOSPHORUS 2.8 mg/dL (2.5-4.9)
[2023-01-04] MEDS: METOCLOPRAMIDE HCL 10MG/2ML VIAL IV SCH ×3 (05:53→17:47)
[2023-01-04] MEDS: MIDODRINE HCL 5MG TABLET PO SCH ×3 (05:53→21:11)
[2023-01-04] MEDS ORDERED: DEXTROSE 5% WATER 1,000 ML IV SCH (08:00)
[2023-01-04] MEDS: CITRIC ACID/SODIUM CITRATE SOLN 30ML UDC PO SCH ×3 (08:32→17:47)
[2023-01-04] MEDS: ASPIRIN 81MG TABLET PO SCH (08:33)
[2023-01-04] MEDS: LEVOTHYROXINE SODIUM 50MCG TABLET PO SCH (08:33)
[2023-01-04] MEDS ORDERED: POTASSIUM CHLORIDE 20MEQ/PACKET PO SCH (09:00)
[2023-01-04] MEDS ORDERED: IPRATROPIUM/ALBUTEROL 0.5-3(2.5)MG/3ML NEB HHN PRN (10:30)
[2023-01-04 12:04] LABS: PLATELET ESTIMATE NORMAL
[2023-01-04] MEDS ORDERED: MIDO5TAB4 PO (14:13)
[2023-01-04] MEDS: ENOXAPARIN 60MG/0.6ML SYR SUBCUT SCH (17:47)
[2023-01-04] MEDS: ATORVASTATIN CALCIUM 20MG TABLET PO SCH (21:11)
[2023-01-05] VITALS (32 sets, daily range): BP systolic 100–146; BP diastolic 51–77
[2023-01-05] MEDS: BLOOD SUGAR DIAGNOSTIC STRIP TEST SCH ×8 (00:40→21:18)
[2023-01-05] MEDS: METOCLOPRAMIDE HCL 10MG/2ML VIAL IV SCH ×5 (00:44→23:43)
[2023-01-05 05:14] LABS: BASOPHILS % 0.2 % (0.0-2.0); EOSINOPHILS % 1.9 % (0.0-5.0); HEMATOCRIT. 23.2 % (36.0-48.0); LYMPHOCYTES % 13.9 % (20.0-50.0); MEAN CORPUSCULAR HEMOGLOBIN 35.1 pg (28.0-32.0); MEAN CORPUSCULAR VOLUME 101.4 fL (81.0-99.0); MEAN PLATELET VOLUME 9.7 fl (7.4-10.4); MONOCYTES % 12.1 % (2.0-8.0); NEUTROPHILS % 71.9 % (40.0-76.0); PLATELET 171 x1000/uL (130-400); RED BLOOD CELL COUNT 2.28 mill/uL (4.2-5.4); RED CELL DISTRIBUTION WIDTH 14.9 % (11.6-14.6)
[2023-01-05 05:35] LABS: PHOSPHORUS 1.7 mg/dL (2.5-4.9)
[2023-01-05] MEDS: MIDODRINE HCL 5MG TABLET PO SCH (05:45)
[2023-01-05] MEDS: CITRIC ACID/SODIUM CITRATE SOLN 30ML UDC PO SCH (07:59)
[2023-01-05] MEDS: LEVOTHYROXINE SODIUM 50MCG TABLET PO SCH (07:59)
[2023-01-05] MEDS: ASPIRIN 81MG TABLET PO SCH (07:59)
[2023-01-05] MEDS ORDERED: POTASSIUM PHOS,M-BASIC-D-BASIC 20 MMOL in DEXT 5% WATER 243.3333 ML IV NR (10:00)
[2023-01-05] MEDS ORDERED: MIDODRINE HCL 5MG TABLET PO PRN (11:00)
[2023-01-05] MEDS ORDERED: DEXTROSE 50% WATER 50ML SYRINGE IV PRN (11:30)
[2023-01-05] MEDS: ENOXAPARIN 60MG/0.6ML SYR SUBCUT SCH (17:20)
[2023-01-05] MEDS ORDERED: ALBUTEROL (0.083%) 2.5MG/3ML NEB HHN PRN (20:30)
[2023-01-05] MEDS ORDERED: IPRATROPIUM BROMIDE (0.02%) 0.5MG/2.5ML NEB HHN PRN (20:30)
[2023-01-05] MEDS: ATORVASTATIN CALCIUM 20MG TABLET PO SCH (21:18)
[2023-01-06] VITALS (7 sets, daily range): BP systolic 110–136; BP diastolic 40–82
[2023-01-06] MEDS: BLOOD SUGAR DIAGNOSTIC STRIP TEST SCH ×4 (07:40→20:29)
[2023-01-06] MEDS: ASPIRIN 81MG TABLET PO SCH (08:42)
[2023-01-06] MEDS: LEVOTHYROXINE SODIUM 50MCG TABLET PO SCH (08:42)
[2023-01-06 10:33] LABS: HEMATOCRIT. 24.8 % (36.0-48.0); HEMOGLOBIN. 8.5 g/dL (12.0-16.0); MEAN CORPUSCULAR HEMOGLOBIN 35.2 pg (28.0-32.0); MEAN CORPUSCULAR VOLUME 102.1 fL (81.0-99.0); MEAN PLATELET VOLUME 9.2 fl (7.4-10.4); PLATELET 191 x1000/uL (130-400); RED BLOOD CELL COUNT 2.43 mill/uL (4.2-5.4); RED CELL DISTRIBUTION WIDTH 14.9 % (11.6-14.6)
[2023-01-06] MEDS: DOCUSATE SODIUM SUGAR FREE 100MG/10ML UDC PEG PRN (10:51)
[2023-01-06 10:55] LABS: PHOSPHORUS 2.4 mg/dL (2.5-4.9)
[2023-01-06 11:56] LABS: PLATELET ESTIMATE NORMAL
[2023-01-06] MEDS ORDERED: LACTULOSE 20G/30ML UDC PO NR (13:00)
[2023-01-06] MEDS: ENOXAPARIN 60MG/0.6ML SYR SUBCUT SCH (17:41)
[2023-01-06] MEDS: DEXTROSE 50% WATER 50ML SYRINGE IV PRN (20:29)
[2023-01-06] MEDS: ATORVASTATIN CALCIUM 20MG TABLET PO SCH (20:29)
[2023-01-07] VITALS: BP 126/52
[2023-01-07 04:00] VITALS: BP 110/40
[2023-01-07] MEDS: BLOOD SUGAR DIAGNOSTIC STRIP TEST SCH ×4 (07:45→21:09)
[2023-01-07 08:18] VITALS: BP 98/42
[2023-01-07] MEDS: ASPIRIN 81MG TABLET PO SCH (09:52)
[2023-01-07] MEDS: LEVOTHYROXINE SODIUM 50MCG TABLET PO SCH (09:52)
[2023-01-07 11:39] VITALS: BP 106/49
[2023-01-07] MEDS: DEXTROSE 50% WATER 50ML SYRINGE IV PRN ×2 (11:59→18:46)
[2023-01-07 15:37] VITALS: BP 105/54
[2023-01-07] MEDS: ENOXAPARIN 60MG/0.6ML SYR SUBCUT SCH (17:00)
[2023-01-07 20:00] VITALS: BP 113/55
[2023-01-07] MEDS: ATORVASTATIN CALCIUM 20MG TABLET PO SCH (21:09)
[2023-01-08] VITALS: BP 120/80
[2023-01-08 04:00] VITALS: BP 127/56
[2023-01-08] MEDS: BLOOD SUGAR DIAGNOSTIC STRIP TEST SCH ×4 (05:56→21:09)
[2023-01-08 06:39] LABS: BASOPHILS % 0.3 % (0.0-2.0); HEMATOCRIT. 22.3 % (36.0-48.0); HEMOGLOBIN. 7.6 g/dL (12.0-16.0); LYMPHOCYTES % 19.3 % (20.0-50.0); MEAN CORPUSCULAR HEMOGLOBIN 34.9 pg (28.0-32.0); MEAN PLATELET VOLUME 9.1 fl (7.4-10.4); MONOCYTES % 13.8 % (2.0-8.0); NEUTROPHILS % 62.6 % (40.0-76.0); PLATELET 179 x1000/uL (130-400); RED BLOOD CELL COUNT 2.16 mill/uL (4.2-5.4); RED CELL DISTRIBUTION WIDTH 15.2 % (11.6-14.6)
[2023-01-08 08:00] VITALS: BP 140/63
[2023-01-08] MEDS: ACETAMINOPHEN 325MG TABLET PO PRN ×2 (09:06→17:26)
[2023-01-08] MEDS: DOCUSATE SODIUM SUGAR FREE 100MG/10ML UDC PEG PRN ×2 (09:06→17:26)
[2023-01-08] MEDS: ASPIRIN 81MG TABLET PO SCH (09:06)
[2023-01-08] MEDS: LEVOTHYROXINE SODIUM 50MCG TABLET PO SCH (09:06)
[2023-01-08 12:00] VITALS: BP 94/43
[2023-01-08 16:00] VITALS: BP 102/66
[2023-01-08 18:01] LABS: HEMATOCRIT 24.1 % (36.0-48.0); HEMOGLOBIN 8.2 g/dL (12.0-16.0); MEAN CORPUSCULAR HEMOGLOBIN 35.1 pg (28.0-32.0); MEAN CORPUSCULAR VOLUME 103.1 fL (81.0-99.0); PLATELET 206 x1000/uL (130-400); RED BLOOD CELL COUNT 2.34 mill/uL (4.2-5.4); RED CELL DISTRIBUTION WIDTH 15.2 % (11.6-14.6)
[2023-01-08 20:00] VITALS: BP 147/60
[2023-01-08] MEDS: ATORVASTATIN CALCIUM 20MG TABLET PO SCH (20:09)
[2023-01-09 04:00] VITALS: BP 106/66
[2023-01-09] MEDS: BLOOD SUGAR DIAGNOSTIC STRIP TEST SCH (06:19)
[2023-01-09 07:23] LABS: BASOPHILS % 0.6 % (0.0-2.0); HEMOGLOBIN. 7.6 g/dL (12.0-16.0); LYMPHOCYTES % 19.3 % (20.0-50.0); MEAN CORPUSCULAR HEMOGLOBIN 35.3 pg (28.0-32.0); MEAN CORPUSCULAR VOLUME 102.8 fL (81.0-99.0); MEAN PLATELET VOLUME 8.7 fl (7.4-10.4); MONOCYTES % 11.8 % (2.0-8.0); NEUTROPHILS % 65.3 % (40.0-76.0); PLATELET 191 x1000/uL (130-400); RED BLOOD CELL COUNT 2.14 mill/uL (4.2-5.4); RED CELL DISTRIBUTION WIDTH 14.9 % (11.6-14.6)
== END 2023-01-09 08:35 | DRG 682 ==
LOC: ER 14:08 → EDBEDREQ 19:16 → EDBEDREQTM 19:16 → EDBEDREQ 19:18 → MICUSO 19:19 → EDBEDREQSVC 19:35 → EDBEDREQTM 19:35 → 5EST 12-28 05:10 → CVICU 01-01 09:40 → 7WST 01-05 20:17
PROVIDERS: ADMIT Family Medicine Adult Medicine; ATTEND Family Medicine Adult Medicine
PROC: 02HV33Z Insertion of Infusion Device into Superior Vena Cava, Percutaneous Approach (ICD-10-PCS; principal; 2023-01-02)
PROC: B548ZZA Ultrasonography of Superior Vena Cava, Guidance (ICD-10-PCS; 2023-01-02)
PROC: 0DB98ZX Excision of Duodenum, Via Natural or Artificial Opening Endoscopic, Diagnostic (ICD-10-PCS; 2023-01-03)
PROC: 0DB78ZX Excision of Stomach, Pylorus, Via Natural or Artificial Opening Endoscopic, Diagnostic (ICD-10-PCS; 2023-01-03)
PROC: 0DH63UZ Insertion of Feeding Device into Stomach, Percutaneous Approach (ICD-10-PCS; 2023-01-03)
DX: N17.0 Acute kidney failure with tubular necrosis (principal); I21.4 Non-ST elevation (NSTEMI) myocardial infarction; J96.01 Acute respiratory failure with hypoxia; M62.82 Rhabdomyolysis; E87.0 Hyperosmolality and hypernatremia; I82.503 Chronic embolism and thrombosis of unspecified deep veins of lower extremity, bilateral; E87.20 Acidosis, unspecified; E46 Unspecified protein-calorie malnutrition; R57.9 Shock, unspecified; I13.0 Hypertensive heart and chronic kidney disease with heart failure and stage 1 through stage 4 chronic kidney disease, or unspecified chronic kidney disease; R62.7 Adult failure to thrive; D72.821 Monocytosis (symptomatic); Z20.822 Contact with and (suspected) exposure to COVID-19; N18.1 Chronic kidney disease, stage 1; E03.9 Hypothyroidism, unspecified; E16.2 Hypoglycemia, unspecified; E86.0 Dehydration; M17.12 Unilateral primary osteoarthritis, left knee; R77.8 Other specified abnormalities of plasma proteins; E83.52 Hypercalcemia; E87.6 Hypokalemia; G30.9 Alzheimer's disease, unspecified; D53.9 Nutritional anemia, unspecified; F02.80 Dementia in other diseases classified elsewhere, unspecified severity, without behavioral disturbance, psychotic disturbance, mood disturbance, and anxiety; K44.9 Diaphragmatic hernia without obstruction or gangrene; N83.209 Unspecified ovarian cyst, unspecified side; K26.9 Duodenal ulcer, unspecified as acute or chronic, without hemorrhage or perforation; R74.01 Elevation of levels of liver transaminase levels; E78.5 Hyperlipidemia, unspecified; I25.10 Atherosclerotic heart disease of native coronary artery without angina pectoris; I08.0 Rheumatic disorders of both mitral and aortic valves; R13.10 Dysphagia, unspecified; K29.00 Acute gastritis without bleeding; I50.9 Heart failure, unspecified; Z86.73 Personal history of transient ischemic attack (TIA), and cerebral infarction without residual deficits; Z95.0 Presence of cardiac pacemaker; Z86.79 Personal history of other diseases of the circulatory system; Z68.20 Body mass index [BMI] 20.0-20.9, adult
CPT/HCPCS: 36415; 36573; 36600; 71045; 76770; 78580; 80048; 80053; 81003; 82140; 82375; 82550; 82805; 82962; 83036; 83605; 83735; 83880; 83970; 84100; 84155; 84165; 84484; 85025; 85027; 85044; 85379; 86850; 86900; 87426; 87804; 88305; 92610; 93005; 93306; 93970; 94640; 97162; 99291; A6261; C1725; C9803; J0696; J1650; J2405; J2704; J2765; J3490; J7030; J7060